=== PATIENT | female | born 1965 | race Caucasian/White ===

== ENCOUNTER 2017-04-02 20:08 | Inpatient (IN) | payer OTHER ==
[~2017-04-02] VITALS: Ht 172.7 cm; Wt 71.7 kg
[2017-04-02 23:48] LABS: *URINE HCG, QUAL NEGATIVE (NEGATIVE)
[2017-04-02 23:50] VITALS: BP 95/69
--- NOTE | 2017-04-02 23:50 | NUR ---
PRE-ADMISSION NOTE: Patient assessed in intake office at 2350 on 04/02/2017. Patient is 51 year old female, ambulatory with steady gait, stable, A&Ox4 speech is clear. Patient states that he is here for Safety Detox from Alcohol. Patient reports that last time she drank Alcohol " Oral Beer 18 packs at 2200 on 04/02/2017". CIWA 11. Patient reports anxiety, sweats, body aches, tremors, and restlessness. VS: T: 98'54 BP: 95/69, HR:79, O2SAT:96%; RR: 18. Patient reports generalized body pain "01/22". Patient reports NKDA, NKFA. Patient instructed on unit protocol of vital signs every four hours, and COWS/CIWA assessments. Patient verbalized understanding and agreement. Will complete admission assessment when patient brought up to unit. Addendum: 04/03/17 at 0007 by MORIAH GALLARDO RN T: 98'5;
[2017-04-03 00:05] LABS: *AMPHETAMINE, URINE NEGATIVE (NEGATIVE); *BARBITURATE, URINE NEGATIVE (NEGATIVE); *CANNABINOID, URINE NEGATIVE (NEGATIVE); *COCCAINE, URINE NEGATIVE (NEGATIVE); *OPIATE, URINE NEGATIVE (NEGATIVE); *PHENCYCLIDINE SCREEN,URINE NEGATIVE (NEGATIVE)
--- NOTE | 2017-04-03 00:05 | NUR ---
ADMISSION NOTE: Patient is a 51 year old female admitted to [facility] on 04/03/2017 at 0005 for Alcohol Dependence. Pre-assessment completed in intake. Patient reports NKA. Patient placed on Full Code, Regular Diet, Fall and Seizures Precautions. Patients denies Hx of Seizures. Urine collected and sent to laboratory for UDS and HCG, Qual test. CIWA 11. The patient presented with anxiety, agitation, nervousness, tremors, body aches, diaphoresis, headache, restlessness, and fatigue. Patient denies SI/HI. VS upon admission: T: 98'4, BP: 95/69, HR:79, O2SAT:96%; RR: 18. Patient reports body aches "01/22". PMH: Anxiety, Depression, Chronic Back Pain, Substance Abuse, Tobacco Dependence. Patient reports that he is recently has "one time detox/treatment at "[place], [place] on 2007 during 2 weeks.". Patient reports the following substances use: 1. Alcohol PO "every day 12-18 bottles of beer since 2007". Last drank "18 bottles on 04/02/17 at 2200". 2. Tobacco smokes " every day 10 cigarettes or 1/2 pack". Last smoked on "04/02/17 at 2350". Patient said that she has "no PCP long time". Patient brought her home medications: 1. Cyclobenzaprine 10 mg PO BID. 2. Paroxetine HCL 40 mg 1 tab PO 1 tab daily AM. 3. Buspirone HCL 10 mg tab TID PO. 4. Clonidine HCL 0.1 mg tab TID PO. 5. Gabapentine 600 mg tab TID PO. 6. Trazodone 100 mg 1 tab HS PO. 7. Hydroxyzine SALVADOR 25 MG cap four times daily PO. 8. Albuterol Nebulizer. 9. QVAR 40 MCG ORAL INHALER TEVA SPECIALTY. 10.HiD @W Tense/EMS Device with Free Pain Living Multi use self -adhesive electrodes: five. Upon initial assessment patient alert and oriented x4. Respirations are even and unlabored. Patient denies chest pain and SOB. Lungs Sounds are clear bilaterally. Bowel Sounds are active in all 4 quadrants. Last Bowel Movement was "04/02/2017 at 2200 ". Skin is intake, warm and dry. Patient oriented to floor and room, explained how to use call light. Patient verbalized understanding. Education provided. All needs met. Safety measures in the place by hospital policy: bed in the lowest position, and locked, padded bed rails up x2. Will continue to monitor closely.
--- NOTE | 2017-04-03 00:05 | NUR ---
ADMISSION NOTE: Patient is a 34 year old male admitted to [facility] at 2245 on 04/01/2017 for Benzodiazepines, Alcohol, and Opioid Dependence. Pre-assessment completed in intake. Patient reports NKA. . Patient placed on Full Code, Regular Diet, Fall and Seizures Precautions. Patients denies Hx of Seizures. Urine collected and sent to laboratory for UDS and HCG, Qual test. CIWA 11. The patient presented with anxiety, agitation, nervousness, tremors, body aches, diaphoresis, headache, restlessness, and fatigue. Patient denies SI/HI. VS upon admission: T: 98'4, BP: 95/69, HR:79, O2SAT:96%; RR: 18. Patient reports body aches "01/22". PMH: Anxiety, Depression, Chronic Back Pain, Substance Abuse, Tobacco Dependence. Patient reports that he is recently has "one time detox/treatment at "[place], [place] on 2007 during 2 weeks." Patient reports the following substances use: 1. Alcohol PO "every day 12-18 bottles of beer since 2007. Last drank 18 bottles on 04/02/17 at 2200". 2. Tobacco smokes " every day 10 cigarettes or 1/2 pack. Last used on 04/02/17 at 2350". Patient has "no PCP long time". Patient brought her home medications: 1. Cyclobenzaprine 10 mg PO BID. 2. Paroxetine HCL 40 mg 1 tab PO 1 tab daily AM. 3. Buspirone HCL 10 mg tab TID PO. 4. Clonidine HCL 0.1 mg tab TID PO. 5. Gabapentin 600 mg tab TID PO. 6. Trazodone 100 mg 1 tab HS PO. 7. Hydroxyzine SALVADOR 25 MG cap four times daily PO. 8. Albuterol Nebulizer. 9. QVAR 40 MCG ORAL INHALER TEVA SPECIALTY. 10.HiD @W Tense/EMS Device with Free Pain Living Multi use self -adhesive electrodes: five. Respirations are even and unlabored. Patient denies chest pain and SOB. Lungs Sounds are clear bilaterally. Bowel Sounds are active in all 4 quadrants. Last Bowel Movement was "04/02/2017 at 2200 ". Skin is intake, warm and dry. Patient oriented to floor and room, explained how to use call light. Patient verbalized understanding. Education provided. All needs met. Safety measures in the place by hospital policy: bed in the lowest position, and locked, padded bed rails up x2. Will continue to monitor closely. Addendum: 04/03/17 at 0445 by MORIAH GALLARDO RN WRONG PT.
[2017-04-03] MEDS ORDERED: LORAZEPAM 1 MG TABLET PO PRN (00:15)
[2017-04-03] MEDS ORDERED: IBUPROFEN 400 MG TABLET PO PRN (00:15)
[2017-04-03] MEDS ORDERED: LORAZEPAM 2 MG/1 ML VIAL IM PRN (00:15)
[2017-04-03] MEDS ORDERED: ONDANSETRON ODT 4 MG TAB.RAPDIS SL PRN (00:15)
[2017-04-03] MEDS ORDERED: THIAMINE HCL 200 MG/2 ML VIAL IM ONE (00:15)
[2017-04-03] MEDS ORDERED: ACETAMINOPHEN 325 MG TABLET PO PRN (00:15)
[2017-04-03] MEDS ORDERED: DICYCLOMINE HCL 20 MG TABLET PO PRN (00:15)
[2017-04-03] MEDS ORDERED: MAG HYDROX/AL HYDROX/SIMETH 30 ML LIQUID UDC PO PRN (00:15)
[2017-04-03] MEDS ORDERED: ONDANSETRON 4 MG/2 ML VIAL IM PRN (00:15)
[2017-04-03] MEDS ORDERED: diphenhydrAMINE 50 MG CAPSULE PO PRN (00:15)
[2017-04-03] MEDS ORDERED: LOPERAMIDE HCL 2 MG CAPSULE PO PRN ×2 (00:15)
[2017-04-03] MEDS ORDERED: MAGNESIUM HYDROXIDE 30 ML LIQUID UDC PO PRN (00:15)
[2017-04-03] MEDS ORDERED: MIRALAX 17 GM POWD.PACK PO PRN (00:15)
[2017-04-03] MEDS ORDERED: CYCL5TAB PO (00:55)
[2017-04-03] MEDS: LORAZEPAM 1 MG TABLET PO PRN ×2 (01:13→09:36)
--- NOTE | 2017-04-03 01:13 | NUR ---
PRN BENADRYL PO 50 MG 1 CAP AND PRN ATIVAN 1MG 1 TAB PO ADMINISTRATION Patient c/o insomnia and increased anxiety. Patient assessed. CIWA 11. VS WNL. PRN Benadryl PO and PRN Ativan PO discussed with patient. Patient's educated for actions, adverse reactions, and side effects of Benadryl and Ativan. Patient returned back knowledge by verbalized understanding PRN Benadryl PO 50 mg 1 cap and PRN Ativan 1 mg 1 tab administrated as ordered with full glass of water. All needs met. Safety measures in the place. Call light within reach, bed in the lowest position, and locked, padded bed rails up x2. Will continue to monitor closely.
[2017-04-03] MEDS ORDERED: LORAZEPAM 1 MG TABLET ONE (01:17)
[2017-04-03] MEDS ORDERED: diphenhydrAMINE 50 MG CAPSULE ONE (01:19)
[2017-04-03] MEDS ORDERED: BUSP5POW MC (01:25)
[2017-04-03] MEDS ORDERED: PARO40TA4 PO (01:25)
[2017-04-03] MEDS ORDERED: CLON0.1T PO (01:34)
[2017-04-03] MEDS ORDERED: GABA600T2 PO (01:34)
[2017-04-03] MEDS ORDERED: ALBU2.5V38 NEB (01:58)
[2017-04-03] MEDS ORDERED: TRAZ-147 PO (01:58)
[2017-04-03] MEDS ORDERED: HYDR-3895 PO (01:58)
--- NOTE | 2017-04-03 02:13 | NUR ---
RE-ASSESSMENT Patient is sleeping. Respirations even and unlabored. RR: 16. PRN Ativan PO and PRN Benadryl PO were effective. All needs met. Safety measures in the place. Call light within reach, bed in the lowest position, and locked, padded bed rails up x2. Will continue to monitor closely.
[2017-04-03 04:00] VITALS: BP 116/80
--- NOTE | 2017-04-03 07:02 | NUR ---
END OF SHIFT NOTE: Patient is a 51 year old female admitted to [facility] on 04/03/2017 at 0005 for Alcohol Dependence. Patient reports NKA. Patient placed on Full Code, Regular Diet, Fall and Seizures Precautions. Patients denies Hx of Seizures. PMH: Anxiety, Depression, Chronic Back Pain, Substance Abuse, Tobacco Dependence. Patient reports "one time detox/treatment at "[facility], [place] on 2007 during 2 weeks." Patient reports the following substances use: 1. Alcohol PO "every day 12-18 bottles of beer since 2007. Last drank 18 bottles on 04/02/17 at 2200". 2. Tobacco smokes " every day 10 cigarettes or 1/2 pack. Last used on 04/02/17 at 2350". Last CIWA at 0400 decreased from 11 to 4. The patient presented with anxiety, agitation, nervousness, tremors, body aches, diaphoresis, headache, restlessness, and fatigue. Patient denies SI/HI. VS at 0400: T: 98'1, BP: 116/80, HR:81, O2SAT:99%; RR: 16, pain "0/10". Respirations are even and unlabored. Patient denies chest pain and SOB. Last Bowel Movement was "04/02/2017 at 2200 ". Skin is intact, warm and dry to touch. PRN Ativan PO and PRN Benadryl PO were effective. Encourage fluids intake as tolerated. Encourage to attend group activities. Patient slept 4 hours, intake 500 ml, voided x1. All needs met. Safety measures in the place by hospital policy: bed in the lowest position, and locked, bed rails up x2.
--- NOTE | 2017-04-03 07:41 | NUR ---
START OF SHIFT NOTE: Received report from warehouse worker 2nd shift nurse. Patient is a 51 year old female admitted 04/03/2017 for Alcohol Dependence. Pt is currently on prn meds only. Pt is alert and oriented X4. Color good, skin warm and dry. Respirations even and unlabored. Resting in bed. Safety precautions observed. Call light within reach. Will continue to monitor.
[2017-04-03 07:53] LABS: BASOPHILS # (AUTO) 0.1 K/uL (0.0-8.0); BASOPHILS % (AUTO) 0.7 % (0.0-2.0); EOSINOPHILS # (AUTO) 0.2 K/uL (0.0-0.7); EOSINOPHILS % (AUTO) 2.2 % (0.0-7.0); HEMATOCRIT 36.3 % (37-47); HEMOGLOBIN 12.5 G/DL (12.0-16.0); LYMPHOCYTES # (AUTO) 2.2 K/UL (0.8-4.8); LYMPHOCYTES % (AUTO) 25.8 % (20.5-51.5); MEAN CORPUSCULAR HGB CONC 34 g/dL (32.0-37.0); MEAN CORPUSCULAR VOLUME 90.3 FL (81.0-99.0); MONOCYTES # (AUTO) 0.8 K/UL (0.1-1.30); MONOCYTES % (AUTO) 8.7 % (0.0-11.0); NEUTROPHILS # (AUTO) 5.3 K/UL (1.8-8.9); NEUTROPHILS % (AUTO) 62.6 % (38.5-71.5); PLATELET COUNT (AUTO) 229 K/UL (150-450); RED BLOOD CELL COUNT(AUTO) 4.03 MIL/UL (4.2-5.4); WHITE BLOOD COUNT (AUTO) 8.6 K/UL (4.0-11.2)
[2017-04-03 08:00] VITALS: BP 129/84
[2017-04-03 08:32] LABS: ETHANOL < 3 MG/DL (0-0)
[2017-04-03] MEDS ORDERED: TUBERCULIN,PURIF.PROT.DERIV. 5 TU/0.1 ML TEST ID ONE (09:00)
--- NOTE | 2017-04-03 09:00 | NUR ---
VSS CIWA 10 Ativan 1mg po prn given. Pt c/o anxiety, sweating and slight tremors
[2017-04-03 09:01] LABS: ALANINE AMINOTRANSFERASE 42 U/L (14-59); ALKALINE PHOSPHATASE 90 U/L (50-136); AMYLASE 49 U/L (25-115); BILIRUBIN,TOTAL 0.4 mg/dL (0.2-1.0); CARBON DIOXIDE 25 mmol/L (21-32); CHLORIDE 104 mmol/L (98-107); CREATININE 0.9 mg/dL (0.6-1.3); GLUCOSE 98 mg/dL (74-106); MAGNESIUM 1.8 mg/dL (1.8-2.4); POTASSIUM 4.3 mmol/L (3.5-5.1); TOTAL PROTEIN, SERUM 7.1 g/dL (6.4-8.2); UREA NITROGEN, BLOOD 16 mg/dL (7-18)
--- NOTE | 2017-04-03 09:10 | NUR ---
TB test administered LFA
[2017-04-03 09:19] LABS: ASPARTATE AMINOTRANSFERASE 46 U/L (15-37); LIPASE 115 U/L (73-393)
[2017-04-03] MEDS: FOLIC ACID 1 MG TABLET PO SCH (09:36)
[2017-04-03] MEDS: THIAMINE HCL 100 MG TABLET PO SCH (09:36)
[2017-04-03] MEDS: MULTIVITAMINS,THERAPEUTIC TABLET PO SCH (09:37)
--- NOTE | 2017-04-03 10:00 | NUR ---
Pt states feels less anxious after Ativan prn
--- NOTE | 2017-04-03 11:21 | NUR ---
Medication Reconciliation Pt states that she really wants her psychiatric medications. Dr Aguayo notified, gave ok to continue her home medications: Paxil 40mg PO daily, Buspar 10mg PO TID and trazadone 100mg PO Q HS PRN insomnia. Orders entered, unable to enter orders.
[2017-04-03] MEDS ORDERED: PAROXETINE HCL 20 MG TABLET PO SCH (11:30)
[2017-04-03] MEDS: busPIRone 10 MG TABLET PO SCH ×2 (12:21→18:00)
[2017-04-03] MEDS ORDERED: ALBUTEROL SULFATE 2.5 MG/3 ML NEBU NEB PRN (13:00)
[2017-04-03 13:34] VITALS: BP 130/82
[2017-04-03] MEDS: GABAPENTIN 300 MG CAPSULE PO SCH ×2 (13:45→20:52)
[2017-04-03] MEDS: LORAZEPAM 1 MG TABLET PO SCH ×3 (13:45→20:53)
--- NOTE | 2017-04-03 14:07 | NUR ---
VSS CIWA 8 c/o anxiety and chills. Pt started on a 5 day Ativan taper. Pt given Immodium 4mg po prn for cramping and diarrhea.
--- NOTE | 2017-04-03 15:00 | NUR ---
Pt states cramping and diarrhea ceased after Immodium prn.
[2017-04-03] MEDS ORDERED: TRAZODONE 100 MG TABLET PO PRN (16:15)
[2017-04-03] MEDS ORDERED: busPIRone 5 MG TABLET PO SCH (17:00)
[2017-04-03 17:50] VITALS: BP 132/88
--- NOTE | 2017-04-03 18:38 | NUR ---
END OF SHIFT REPORT: Report given to shift boss nurse . Patient is a 51 year old female admitted 04/03/2017 for Alcohol Dependence. Pt placed on a 5 day Ativan taper. Tolerating well. . Pt is alert and oriented X4. Color good, skin warm and dry. Respirations even and unlabored. Vital signs remained stable throughout shift . Last CIWA 5 @ 1700. Pt received Immodium 4mg po prn @ 1400. Also received Ativan 1mg po prn @ 0900 before taper started. Resting in bed. Safety precautions observed. Call light within reach.
--- NOTE | 2017-04-03 19:45 | NUR ---
START OF SHIFT NOTE: Patient endorsed by day shift nurse. Report received. Patient is a 51 year old female admitted to [facility] on 04/03/2017 for Alcohol Dependence, placed on 5 Day Ativan Taper, tolerating well. Patient remains compliant with therapeutic plan, medications, and diet regime. NKA. Full Code, Regular Diet, Fall and Seizures Precautions. PMH: Anxiety, Depression, Chronic Back Pain, Substance Abuse, Tobacco Dependence. The patient denies a history of withdrawal-induced seizures. Upon endorsement, patient is in the room alert and oriented x4, speech is soft. Last CIWA 5 at 1945. Patient presented with anxiety, agitation, nervousness, body aches, barely sweating, restlessness, and fatigue. Respirations are even and unlabored. Patient denies chest pain and SOB. Lungs Sounds are clear bilaterally. Bowel Sounds are active in all 4 quadrants. Last Bowel Movement was "04/03/2017 at 1500 ". Skin is intake, warm and dry to touch Patient denies SI/HI at this time. VS WNL. Encouraged group activities attending. All needs met. Safety measures in the place by hospital policy: bed in the lowest position, and locked, padded bed rails up x2. Will continue to monitor closely.
[2017-04-03 20:00] VITALS: BP 124/84
[2017-04-03] MEDS ORDERED: TRAZODONE 100 MG TABLET PO SCH (21:00)
[2017-04-04] VITALS: BP 124/79
[2017-04-04 04:00] VITALS: BP 128/79
--- NOTE | 2017-04-04 07:07 | NUR ---
END OF SHIFT NOTE: Patient endorsed to day shift nurse in stable condition. Patient is a 51 year old female admitted to [facility] on 04/03/2017 at 0005 for Alcohol Dependence. Patient reports NKA. . Patient placed on Full Code, Regular Diet, Fall and Seizures Precautions. Patients denies Hx of Seizures. PMH: Anxiety, Depression, Chronic Back Pain, Substance Abuse, Tobacco Dependence. Patient reports that he is recently has "one time detox/treatment at "[place], [place] on 2007 during 2 weeks". Last CIWA 6 at 0400. The patient presented with anxiety, agitation, nervousness, tremors, body aches, diaphoresis, very mild headache, restlessness, and fatigue. Patient denies SI/HI. VS at 0400: T: 98'3, BP: 128/79, HR:99, RA O2SAT: 98%; RR: 16, pain "7/10". Respirations are even and unlabored. Patient denies chest pain and SOB. Skin is intact, warm and dry to touch. Encourage fluids intake as tolerated. Encourage to attend group activities. Patient slept 3 hours 30 minutes, intake 1,700 ml, voided x3. All needs met. Safety measures in the place by hospital policy: bed in the lowest position, and locked, bed rails up x2.
[2017-04-04 08:00] VITALS: BP 140/94
[2017-04-04 08:08] LABS: HEPATITIS B SURFACE AG Negative (Negative)
[2017-04-04] MEDS ORDERED: PAROXETINE HCL 20 MG TABLET PO SCH (09:00)
[2017-04-04] MEDS: LORAZEPAM 1 MG TABLET PO SCH ×3 (09:32→21:22)
[2017-04-04] MEDS: MULTIVITAMINS,THERAPEUTIC TABLET PO SCH (09:32)
[2017-04-04] MEDS: busPIRone 10 MG TABLET PO SCH ×3 (09:32→17:13)
[2017-04-04] MEDS: GABAPENTIN 300 MG CAPSULE PO SCH ×3 (09:32→21:22)
[2017-04-04] MEDS: FOLIC ACID 1 MG TABLET PO SCH (09:32)
[2017-04-04] MEDS: THIAMINE HCL 100 MG TABLET PO SCH (09:32)
--- NOTE | 2017-04-04 10:02 | NUR ---
START OF SHIFT Received report from awake overnight counselor nurse. Patient is 51 year old female admitted for medically supervised withdrawal from alcohol. Patient is full code with NKA. On assessment this AM: CIWA: 7. Denies SOB, chest pain. vitals signs WNL. Reports moderate anxiety, mild agitation, mild tremors, and neck pain 8/10 (declined prn ibuprofen and tylenol). Med compliant with AM meds. Patient was encouraged to attend group meetings today. Will continue to monitor patient. will follow up with MD regarding patient's neck pain.
[2017-04-04 12:00] VITALS: BP 145/90
[2017-04-04] MEDS: HYDROXYZINE PAMOATE 25 MG CAPSULE PO PRN (12:47)
[2017-04-04] MEDS: CLONIDINE HCL 0.1 MG TABLET PO PRN (12:48)
--- NOTE | 2017-04-04 12:48 | NUR ---
PRN CLONIDINE AND VISTARIL Patient complained of increasing anxiety. PRN clonidiene (BP 145/90)and vistaril given. Will monitor effectiveness of medications.
--- NOTE | 2017-04-04 13:48 | NUR ---
REASSESSMENT (PRN CLONIDINE AND VISTARIL) Patient reports meds were effective and reports decreased anxiety. Patient appears calmer and comfortable.
[2017-04-04 16:00] VITALS: BP 133/85
[2017-04-04] MEDS ORDERED: IBUPROFEN 600 MG TABLET PO PRN (18:00)
--- NOTE | 2017-04-04 19:00 | NUR ---
END OF SHIFT Patient is 51 year old female admitted for medically supervised withdrawal from alcohol. Patient is full code with NKA. Most recent CIWA: 5. Patient reports prn vistaril and clonidine help with the anxiety. Med compliant with routine meds during this shift. Patient tolerating meals without n/v. apiariste commerce merchandising coordinator will continue to monitor patient. apiariste commerce merchandising coordinator will continue to monitor patient.
[2017-04-04 20:00] VITALS: BP 129/91
--- NOTE | 2017-04-04 20:00 | NUR ---
Start of Shift Note: Report received from day shift nurse. Pt is a 49 yo female admitted on 04/02/2017 for medically-supervised withdrawal from ETOH. Pt reports drinking 12-18 beers daily for four years. Pt is on a 5-day Ativan taper. Pt received with last CIWA=5, and PRN's Vistaril and clonidine were given during day shift. Pt is a full code, reports NKDA/NKFA, and is on a regular diet. PMHx: anxiety, depression, and chronic back pain. Pt received in room and reports anxiety, agitation, and diaphoresis. Bed is in low position and locked, side rails up x2, call light within reach. Will continue to monitor.
[2017-04-04] MEDS: TRAZODONE 100 MG TABLET PO PRN (21:22)
[2017-04-04] MEDS: KETOROLAC TROMETHAMINE 30 MG INJ IM PRN (21:23)
--- NOTE | 2017-04-04 21:23 | NUR ---
PRN Toradol and PRN Trazodone: Patient complains of severe neck pain, rates pain 10/10. Administered PRN Toradol IM as ordered. Patient complains of inability to sleep. Administered PRN Trazodone as ordered. Will continue to monitor.
[2017-04-05] VITALS: BP 119/78
--- NOTE | 2017-04-05 | NUR ---
CIWA Deferred: CIWA deferred for sleep. V/S stable. All safety precautions are in place. Will continue to monitor. Addendum: 04/05/17 at 0023 by MARIS GALEANO RN Amended: Links added.
[2017-04-05] MEDS ORDERED: IBUPROFEN 400 MG TABLET PO PRN (00:15)
[2017-04-05 04:00] VITALS: BP 125/84
[2017-04-05] MEDS: PANTOPRAZOLE SODIUM 40 MG TABLET.DR PO SCH (06:08)
--- NOTE | 2017-04-05 07:12 | NUR ---
End of Shift Note: Pt is a 49 yo female admitted to [facility] on 04/02/2017 for medically-supervised withdrawal from ETOH. Pt reports PMHx of anxiety, depression, and chronic back pain. Pt is a full code. Pt reports NKDA/NKFA. Pt is on a regular diet. Pt reports drinking 12-18 beers daily for four years. Pt is on a 5-day Ativan taper. Scheduled medication regime effectively managed s/s of withdrawal this shift. Last CIWA=6 at 04:00. PRN Toradol was given for neck pain, which was effective. V/S stable throughout shift with tachycardia. Total fluid intake this shift: 855 ml; output: urine x 1 and BM x 1. PRN Trazodone was given for inability to sleep, which was effective and pt slept 5 hours this shift. Pt is currently in bed, all needs have been attended and met. Pt endorsed to day shift nurse.
[2017-04-05 08:00] VITALS: BP 132/87
--- NOTE | 2017-04-05 08:00 | NUR ---
START OF SHIFT Pt 51 y/o female admitted for etoh dependence. Pt received in room awake watching television. Pt alert and oriented to name, place, and time. Perrla. Skin warm and dry to touch. Respirations even and unlabored. Bilateral hand tremors noted slightly. Pt appears slightly anxious with pressured speech noted. It was reported that pt slept for 5 hours last night. Bed on lowest position with side rails x2 up for safety. Call ligth within reach. No distress noted at this time.
[2017-04-05] MEDS: MULTIVITAMINS,THERAPEUTIC TABLET PO SCH (08:50)
[2017-04-05] MEDS: GABAPENTIN 300 MG CAPSULE PO SCH ×3 (08:50→20:45)
[2017-04-05] MEDS: LORAZEPAM 1 MG TABLET PO SCH ×4 (08:50→20:45)
[2017-04-05] MEDS: busPIRone 10 MG TABLET PO SCH ×3 (08:50→16:59)
[2017-04-05] MEDS: FOLIC ACID 1 MG TABLET PO SCH (08:50)
[2017-04-05] MEDS: THIAMINE HCL 100 MG TABLET PO SCH (08:50)
[2017-04-05 12:00] VITALS: BP 110/71
[2017-04-05] MEDS: CLONIDINE HCL 0.1 MG TABLET PO PRN ×2 (14:13→20:45)
--- NOTE | 2017-04-05 14:13 | NUR ---
PRN Pt states feels anxious. Catapres po prn per MD order given and tolerated well.
--- NOTE | 2017-04-05 15:13 | NUR ---
CLINTON MILLER Pt observed in room on bed laying down watching television.
[2017-04-05 16:00] VITALS: BP 142/86
--- NOTE | 2017-04-05 18:28 | NUR ---
END OF SHIFT Pt 51 y/o female admitted for etoh dependence. Pt alert and oriented to name, place, and time. Perrla. Skin warm and dry to touch. Respirations even and unlabored. Bilateral hand tremors noted slightly. Pt appears slightly anxious with pressured speech noted. Pt observed mostly isolative to room with minimal peer interaction, but did attend group activity. Pt was seen by Dr. Acosta. Pt medication compliant and tolerated well. No ASE noted. Bed on lowest position with side rails x2 up for safety. Call ligth within reach. No distress noted at this time.
[2017-04-05 20:00] VITALS: BP 128/79
--- NOTE | 2017-04-05 20:00 | NUR ---
Start of Shift Note: Report received from day shift nurse. 49F admitted for medically-supervised withdrawal from ETOH; pt continues on a 5-day Ativan taper. Endorsed from day shift that pt continues with mild tachycardia. Last day shift CIWA was 2 and PRN clonidine was administered. Received pt in room, and reports anxiety and agitation. All safety precautions are in place. Will continue to monitor.
[2017-04-05] MEDS: TRAZODONE 100 MG TABLET PO PRN (20:45)
--- NOTE | 2017-04-05 20:45 | NUR ---
PRN Clonidine and PRN Trazodone: Patient complains of increased anxiety. Administered PRN Clonidine as ordered. Patient complains of inability to sleep. Administered PRN Trazodone as ordered. Will continue to monitor.
--- NOTE | 2017-04-05 21:45 | NUR ---
PRN Reassessment: Patient is in bed with eyes closed. Respirations are even and unlabored. No s/s of acute distress noted. PRN Clonidine and PRN Trazodone effective AEB patient's ability to rest. Will continue to monitor.
--- NOTE | 2017-04-06 | NUR ---
Vitals Refused, CIWA Deferred: Patient refuses V/S assessment at this time. Patient educated on risks and benefits but still refused. CIWA deferred for sleep. All safety precautions in place. Will continue to monitor. Addendum: 04/06/17 at 0244 by MARIS GALEANO RN Amended: Links added.
[2017-04-06 04:00] VITALS: BP 122/78
--- NOTE | 2017-04-06 04:00 | NUR ---
CIWA Deferred: CIWA assessment is deferred for sleep. V/S stable. All safety precautions are in place. Will continue to monitor. Addendum: 04/06/17 at 0624 by MARIS GALEANO RN Amended: Links added.
[2017-04-06] MEDS: PANTOPRAZOLE SODIUM 40 MG TABLET.DR PO SCH (07:03)
--- NOTE | 2017-04-06 07:29 | NUR ---
End of Shift Note: Patient is a 49 y/o female admitted to [facility] for medically-supervised withdrawal from ETOH. Patient reported drinking 12-18 beers daily for four years. Patient continues on a 5-day Ativan taper. Scheduled medication regime effectively managed s/s of withdrawal this shift, in addition to PRN clonidine for anxiety. Last CIWA=2 at 20:00. V/S stable throughout shift with tachycardia. Patient requested continuation of home med, Paxil and new order obained from Dr Aguayo. Patient also requesting to take Clonidine on scheduled basis, not PRN. Total fluid intake this shift: 1100 ml; output: urine x 2 and BM x 0. PRN Trazodone was given for inability to sleep, which was effective as patient slept 9 hours this shift. Pt is currently in bed, all needs have been attended and met. Pt endorsed to day shift nurse.
[2017-04-06 08:00] VITALS: BP 123/77
--- NOTE | 2017-04-06 08:00 | NUR ---
START OF SHIFT Pt 51 y/o female admitted for etoh dependence. Pt received in room on bed awake watching television. Pt alert and oriented to name, place, and time. Perrla. Skin warm and dry to touch. Respirations even and unlabored. Bilateral hand tremors noted slightly. It was reported that pt slept for 9 hours last night. Bed on lowest position with side rails x2 up for safety. Call light within reach. No distress noted at this time.
[2017-04-06] MEDS: GABAPENTIN 300 MG CAPSULE PO SCH ×3 (08:35→20:26)
[2017-04-06] MEDS: LORAZEPAM 1 MG TABLET PO SCH ×3 (08:35→20:25)
[2017-04-06] MEDS: THIAMINE HCL 100 MG TABLET PO SCH (08:35)
[2017-04-06] MEDS: FOLIC ACID 1 MG TABLET PO SCH (08:35)
[2017-04-06] MEDS: MULTIVITAMINS,THERAPEUTIC TABLET PO SCH (08:35)
[2017-04-06] MEDS: busPIRone 10 MG TABLET PO SCH ×3 (08:35→16:31)
[2017-04-06] MEDS: PAROXETINE HCL 20 MG TABLET PO SCH (08:35)
[2017-04-06] MEDS: HYDROXYZINE PAMOATE 25 MG CAPSULE PO PRN (08:48)
--- NOTE | 2017-04-06 08:48 | NUR ---
PRN Pt states feels anxious. Vistaril po prn per MD order given and tolerated well.
--- NOTE | 2017-04-06 09:48 | NUR ---
PRN ANGELA Pt observed on bed in room watching television. No distress noted at this time.
[2017-04-06] MEDS: CLONIDINE HCL 0.1 MG TABLET PO PRN ×2 (12:13→20:25)
[2017-04-06 12:54] VITALS: BP 144/86
[2017-04-06 16:00] VITALS: BP 134/79
[2017-04-06] MEDS ORDERED: hydrALAZINE HCL 25 MG TABLET PO PRN (17:30)
--- NOTE | 2017-04-06 19:45 | NUR ---
Start of Shift Note: Report received from day shift nurse. Patient is a 51 y/o female admitted on 04/02/17 for medically-supervised withdrawal from ETOH. Patient reported drinking 12-18 bottles of beer daily for four years. Patient continues on a 5-day Ativan taper. Patient received with last day shift CIWA=2; PRN Catapres and PRN Vistaril were given during day shift for anxiety. Patient received in room, and reports anxiety, restlessness, insomnia, and neck pain. All safety precautions are in place. Will continue to monitor.
[2017-04-06 20:00] VITALS: BP 125/82
--- NOTE | 2017-04-06 20:25 | NUR ---
PRN's Clonidine, Toradol, and Trazodone: Patient complains of increased anxiety. Administered PRN Clonidine as ordered. Patient reports 10/10 neck pain. Administered PRN Toradol IM as ordered. Patient complains of inability to sleep. Administered PRN Trazodone as ordered. Will continue to monitor.
[2017-04-06] MEDS: TRAZODONE 100 MG TABLET PO PRN (20:26)
[2017-04-06] MEDS: KETOROLAC TROMETHAMINE 30 MG INJ IM PRN (20:26)
--- NOTE | 2017-04-06 21:25 | NUR ---
PRN Reassessment: Patient states that PRN Toradol was effective. Patient denies pain at this time. Patient reports a decrease in anxiety. PRN Clonidine effective. Will reassess PRN Trazodone at end of shift.
[2017-04-07] VITALS: BP 116/81
--- NOTE | 2017-04-07 | NUR ---
CIWA Deferred: CIWA deferred for sleep. V/S stable. All safety precautions are in place. Will continue to monitor. Addendum: 04/07/17 at 0218 by MARIS GALEANO RN Amended: Links added.
[2017-04-07 04:00] VITALS: BP 102/65
--- NOTE | 2017-04-07 04:00 | NUR ---
CIWA Deferred: CIWA deferred for sleep. V/S stable. All safety precautions are in place. Will continue to monitor. Addendum: 04/07/17 at 0650 by MARIS GALEANO RN Amended: Links added.
[2017-04-07] MEDS: PANTOPRAZOLE SODIUM 40 MG TABLET.DR PO SCH (06:36)
--- NOTE | 2017-04-07 07:51 | NUR ---
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 Patient is on 1:1 for safety. Patient had two behavioral incidents throughout the night, and Crisis Team was called for both incidents. Ativan 2mg IM and Zyprexa 10mg IM was given at start of shift for psychosis; Ativan 2mg PO and Zyprexa 10mg IM was given again in the morning for psychosis. V/S stable throughout shift. Total fluid intake this shift: 878 ml; output: urine x 3 and BM x 2. Pt is currently in bed and slept 5 hours this shift. All needs have been attended and met. Pt endorsed to day shift nurse. Addendum: 04/07/17 at 0755 by MARIS GALEANO RN Error, wrong patient. Disregard note.
--- NOTE | 2017-04-07 07:54 | NUR ---
End of Shift Note: Patient is a 51YO female admitted to [facility] on 04/02/17 for medically-supervised withdrawal from ETOH. Patient reports drinking 12-18 beers/day for four years. Patient is on a 5-day Ativan taper. Scheduled medication regime effectively managed s/s of withdrawal this shift, in addition to PRN Catapres for anxiety. Last CIWA=2 at 20:00. V/S stable throughout shift with tachycardia. PRN Toradol was given for severe neck pain. Total fluid intake this shift: 1210 ml; output: urine x 3 and BM x 0. PRN Trazodone was given for inability to sleep, which was effective as patient slept 8 hours this shift. Pt is currently in bed, all needs have been attended and met. Pt endorsed to day shift nurse.
[2017-04-07 08:00] VITALS: BP 121/71
--- NOTE | 2017-04-07 08:00 | NUR ---
START OF SHIFT Pt 51 y/o female admitted for etoh dependence. Pt received in room on bed with eyes closed resting, but easily arousable to name. Pt alert and oriented to name, place, and time. Perrla. Skin warm and dry to touch. Respirations even and unlabored. Bilateral hand tremors noted slightly. Pt appeared agitated this morning. It was reported that pt slept for 8 hours last night. Bed on lowest position with side rails x2 up for safety. Call light within reach. No distress noted at this time.
[2017-04-07] MEDS: busPIRone 10 MG TABLET PO SCH ×3 (08:10→17:15)
[2017-04-07] MEDS: LORAZEPAM 1 MG TABLET PO SCH ×2 (08:10→20:24)
[2017-04-07] MEDS: PAROXETINE HCL 20 MG TABLET PO SCH (08:10)
[2017-04-07] MEDS: THIAMINE HCL 100 MG TABLET PO SCH (08:11)
[2017-04-07] MEDS: GABAPENTIN 300 MG CAPSULE PO SCH ×3 (08:11→20:24)
[2017-04-07] MEDS: FOLIC ACID 1 MG TABLET PO SCH (08:11)
[2017-04-07] MEDS: MULTIVITAMINS,THERAPEUTIC TABLET PO SCH (08:11)
[2017-04-07] MEDS: CLONIDINE HCL 0.1 MG TABLET PO PRN ×2 (08:13→14:55)
--- NOTE | 2017-04-07 08:13 | NUR ---
PRN Pt states feels anxious. Pt appears slightly agitated. Catapres po prn per MD order given and tolerated well.
--- NOTE | 2017-04-07 09:13 | NUR ---
CLINTON MILLER Pt observed in room on bed watching television.
[2017-04-07 12:53] VITALS: BP 112/71
[2017-04-07 16:00] VITALS: BP 121/84
[2017-04-07] MEDS: HYDROXYZINE PAMOATE 25 MG CAPSULE PO PRN (17:13)
[2017-04-07 20:00] VITALS: BP 126/81
--- NOTE | 2017-04-07 20:05 | NUR ---
START OF SHIFT Received report from day shift nurse. Pt attended a group meeting and returned to her room after. She is a 51 yo female admitted to [facility] on 04/03 for ETOH dependence. She is A&Ox4 and ambulatory. NKA, full code status, and on a regular diet. She has a PMH of asthma, chronic back pain, right side neuropathic pain, anxiety, and depression. On admission she admitted to using beer 12-18 bottles per day. She started a 5 day Ativan taper on 04/03. No wheezing or SOB noted. Pt reports mild anxiety. Ativan taper is working well to manage withdrawal symptoms. Last dose is scheduled for tonight. Fall and seizure precautions in place. Bed is down with call light in reach.
[2017-04-07] MEDS: TRAZODONE 100 MG TABLET PO PRN (21:06)
--- NOTE | 2017-04-07 21:07 | NUR ---
PRN Trazodone Pt reports inability to sleep. PRN Trazodone administered.
--- NOTE | 2017-04-07 22:07 | NUR ---
PRN Trazodone reassessment PRN Trazodone effective. Pt is lying in bed resting with eyes closed. Respirations even and unlabored. Safety measures in place.
[2017-04-08] VITALS: BP 105/64
--- NOTE | 2017-04-08 04:00 | NUR ---
0400 Vitals signs refused/CIWA deferred Pt refused to be woken for 0400 vitals signs. Respirations even and unlabored. CIWA ordered Q4HWA. Safety measures in place.
[2017-04-08] MEDS: PANTOPRAZOLE SODIUM 40 MG TABLET.DR PO SCH (06:47)
--- NOTE | 2017-04-08 07:25 | NUR ---
END OF SHIFT Report provided to day shift nurse. Pt is lying in bed resting. She is a 51 yo female admitted to [facility] on 04/03 for ETOH dependence. She is A&Ox4 and ambulatory. NKA, full code status, and on a regular diet. She has a PMH of asthma, chronic back pain, right side neuropathic pain, anxiety, and depression. On admission she admitted to using beer 12-18 bottles per day. She completed a 5 day Ativan taper last night. PRN Trazodone administered. Last CIWA was 2. She drank 1205 and slept 8 hours. Fall and seizure precautions in place. Bed is down with call light in reach.
--- NOTE | 2017-04-08 07:29 | NUR ---
BEGINNING OF SHIFT Patient endorsement report received from film processing shift supervisor, all pertinent information discussed. Patient admitted on 04/02/2017 with admitting Dx: etoh dependence. Patient with ongoing 5 day Ativan taper as ordered, and is scheduled to begin day 2 of taper. Per film processing shift supervisor patient received: Trazodone as ordered, medications was effective. Patient slept for 8 hours. Patient received awake, alert and oriented x4. Educated pateitn regarding plan of care for the day and medication regimen with good verbal understanding. Safety measures in place. all needs met and rendered, will continue to monitor.
[2017-04-08] MEDS: THIAMINE HCL 100 MG TABLET PO SCH (08:32)
[2017-04-08] MEDS: MULTIVITAMINS,THERAPEUTIC TABLET PO SCH (08:32)
[2017-04-08] MEDS: busPIRone 10 MG TABLET PO SCH ×3 (08:32→16:24)
[2017-04-08] MEDS: FOLIC ACID 1 MG TABLET PO SCH (08:32)
[2017-04-08] MEDS: GABAPENTIN 300 MG CAPSULE PO SCH ×3 (08:32→21:10)
[2017-04-08] MEDS: PAROXETINE HCL 20 MG TABLET PO SCH (08:32)
[2017-04-08] MEDS: HYDROXYZINE PAMOATE 25 MG CAPSULE PO PRN ×2 (08:34→21:10)
--- NOTE | 2017-04-08 08:35 | NUR ---
PRN VISTARIL Patient reports increase in anxiety, provided with non pharmacological interventions with no relief, Administered PRN Vistaril as ordered, will monitor effectiveness of medication.
[2017-04-08 08:36] VITALS: BP 128/79
--- NOTE | 2017-04-08 09:35 | NUR ---
VISTARIL REASSESSMENT patient reports medication effective, feels less anxious, will continue to monitor.
[2017-04-08] MEDS: CLONIDINE HCL 0.1 MG TABLET PO PRN ×2 (12:47→21:52)
--- NOTE | 2017-04-08 12:47 | NUR ---
PRN CLONIDINE Patient reported feeling increase in anxiety and restlessness, bp: 138/78 heart rate: 109, provided with non pharmacological interventions with no relief, Administered clonidine as ordered, will monitor effectiveness.
[2017-04-08 12:59] VITALS: BP 138/78
--- NOTE | 2017-04-08 13:47 | NUR ---
CLONIDINE REASSESSMENT Patient reports feeling less anxious. medication effective, will continue to monitor. bp: 130/77 heart rate: 92.
[2017-04-08 13:59] LABS: *AMPHETAMINE, URINE NEGATIVE (NEGATIVE); *BARBITURATE, URINE NEGATIVE (NEGATIVE); *CANNABINOID, URINE NEGATIVE (NEGATIVE); *COCCAINE, URINE NEGATIVE (NEGATIVE); *OPIATE, URINE NEGATIVE (NEGATIVE); *PHENCYCLIDINE SCREEN,URINE NEGATIVE (NEGATIVE)
[2017-04-08] MEDS: KETOROLAC TROMETHAMINE 30 MG INJ IM PRN (16:25)
--- NOTE | 2017-04-08 16:25 | NUR ---
PRN TORADOL Patient c/o neck and back pain 05/24, provided with non pharmacological interventions with no relief, administered Toradol injection as ordered, well tolerated, will monitor effectiveness of medication.
[2017-04-08] MEDS ORDERED: TRAZ-147 PO (16:27)
[2017-04-08] MEDS ORDERED: PANT40TA2 PO (16:27)
[2017-04-08 17:00] VITALS: BP 130/77
--- NOTE | 2017-04-08 17:25 | NUR ---
TORADOL REASSESSMENT Patient reports medication effective one hour post adminstration, current pain level 0/10, will continue to monitor closely.
--- NOTE | 2017-04-08 19:03 | NUR ---
END OF SHIFT Patient alert and oriented x4, vital signs were stable during shift. Patient is compliant with therapeutic plan of care. Patient continues under close observation. Patient completed 5 day Ativan taper, well tolerated. no ASE noted. 0900 assessment patient presented with: tremors that can be felt but not seen, and anxiety with ciwa score of: 3; 1300 assessment patient presented with: tremors that can be felt and mild anxiety; 1700 assessment patient presented with: tremors taht can be felt but not seen, and mild anxiety with ciwa score of: 2. Patient encouraged adequate PO fluid intake as tolerated. Patient encouraged to attend group therapies/sessions to learn new coping skills to prevent relapse, noted attending and participating, denies SI/HI. During shift patient Received PRN: Vistaril, Clonidine and Toradol injection well tolerated, no ASE noted, medications were effective. Safety measures in place. call light kept with in reach, will continue to monitor closely. safety measures in place. will continue to monitor. Patient endorsed to shift supervisor rn nurse, all pertinent information discussed.
[2017-04-08 20:00] VITALS: BP 129/75
--- NOTE | 2017-04-08 20:00 | NUR ---
Start of Shift Patient is a 51-year old, female, admitted for ETOH dependence. With hx of Anxiety, Depression, Asthma and Chronic Back Pain due to Cervical and Lumbar Spinal Disease with Radiculopathy. Pt was placed on a 5-day Ativan taper and completed. No adverse reactions. For discharge to [facility] tomorrow. Pt is AAOx4 and with mild anxiety noted at this time. Pt is ambulatory with steady gait and with intact skin. Fall, universal and safety prec in place. Call light within reach. Latest CIWA=2. Will continue to monitor pt.
[2017-04-08] MEDS: TRAZODONE 100 MG TABLET PO PRN (21:11)
--- NOTE | 2017-04-08 21:11 | NUR ---
RN note PRN Vistaril and Trazodone Pt c/o feeling anxious and unable to sleep. Administered Vistaril 50 mg PO and Trazodone 100 mg PO as ordered. Will reassess.
--- NOTE | 2017-04-08 21:52 | NUR ---
RN note PRN Clonidine Pt c/o feeling anxious and noted to be restless. Administered Clonidine 0.1 mg PO as ordered. Will reassess.
--- NOTE | 2017-04-08 22:15 | NUR ---
RN note reassess Pt asleep on bed, no SOB nor facial grimacing noted.
--- NOTE | 2017-04-09 00:10 | NUR ---
RN note Pt refused vital signs and CIWA assessment for 0000 despite explanation of risks and benefits. No SOB nor facial grimacing noted. RR=16.
--- NOTE | 2017-04-09 04:05 | NUR ---
RN note Pt refused vital signs assessment for 0400 despite explanation of risks and benefits. RR=16. No SOB nor facial grimacing noted.
--- NOTE | 2017-04-09 04:22 | NUR ---
Endorsement Pt asleep on bed, with no SOB nor facial grimacing noted. Endorsed for continuity of care.
--- NOTE | 2017-04-09 07:23 | NUR ---
BEGINNING OF SHIFT Patient endorsement report received from police shift commander, all pertinent information discussed. Patient admitted on 04/02/2017 with admitting Dx: etoh dependence. Patient comleted 5 day ativan taper as ordered, and is scheduled for discharge this morning, patient noted self motivated towards sobriety. Per police shift commander patient received: Trazodone and clonidine as ordered, medications was effective. Patient slept for 6 hours. Patient received awake, alert and oriented x4. Educated pateitn regarding plan of care for the day, medication regimen, will provide patient with all discharge instructions today. Safety measures in place. all needs met and rendered, will continue to monitor.
[2017-04-09] MEDS: PANTOPRAZOLE SODIUM 40 MG TABLET.DR PO SCH (07:57)
[2017-04-09] MEDS: CLONIDINE HCL 0.1 MG TABLET PO PRN (08:00)
[2017-04-09] MEDS: GABAPENTIN 300 MG CAPSULE PO SCH (08:00)
[2017-04-09] MEDS: PAROXETINE HCL 20 MG TABLET PO SCH (08:00)
[2017-04-09] MEDS: FOLIC ACID 1 MG TABLET PO SCH (08:00)
[2017-04-09] MEDS: MULTIVITAMINS,THERAPEUTIC TABLET PO SCH (08:00)
[2017-04-09] MEDS: THIAMINE HCL 100 MG TABLET PO SCH (08:00)
--- NOTE | 2017-04-09 08:01 | NUR ---
PRN CLONIDINE Patient reports increase in anxiety and restlessness, provided with non pharmacological interventions with no relief, administered clonidine as ordered, will monitor effectiveness of medication. safety measures in place.
[2017-04-09 08:02] VITALS: BP 134/85
[2017-04-09] MEDS: HYDROXYZINE PAMOATE 25 MG CAPSULE PO PRN (08:53)
--- NOTE | 2017-04-09 08:53 | NUR ---
PRN VISTARIL Patient reports clonidine ineffective at this time with increase in anxiety, patient provided with non pharmacological interventions with no relief, administered PRN Vistaril. VS WNL. Patient reports feeling anxious d/t discharge today, provided with calming reassurance and encouraged to express feelings.
--- NOTE | 2017-04-09 09:01 | NUR ---
CLONIDINE REASSESSMENT Patient reports medication somewhat effective, reports feeling less anxious, will continue to monitor.
[2017-04-09] MEDS: busPIRone 10 MG TABLET PO SCH (09:02)
--- NOTE | 2017-04-09 09:35 | NUR ---
DISCHARGE Patient off the unit at 0935, prior to discharge patient educated regarding all discharge instructions and patient teaching provided with good verbal understanding. patient reports feeling self motivated towards sobriety. Prior to discharge was administered PRN: Clonidine at 0801 and Vistaril at 0853, currently reports medications were effective, no c/o anxiety. Patients prescriptions, discharge instructions and home medications were placed in patients personal duffel bag. vital signs were stable prior to discharge. last ciwa score of: 0. Patient off the unit at 0935.
== END 2017-04-09 09:35 | disposition other institution (70) | DRG 895 ==
LOC: SRC 23:14
PROVIDERS: ADMIT Internal Medicine; ATTEND Internal Medicine
PROC: HZ2ZZZZ Detoxification Services for Substance Abuse Treatment (ICD-10-PCS; principal; 2017-04-02)
PROC: HZ41ZZZ Group Counseling for Substance Abuse Treatment, Behavioral (ICD-10-PCS; 2017-04-04)
PROC: HZ31ZZZ Individual Counseling for Substance Abuse Treatment, Behavioral (ICD-10-PCS; 2017-04-05)
DX: F10.230 Alcohol dependence with withdrawal, uncomplicated (principal); F32.1 Major depressive disorder, single episode, moderate; Y90.9 Presence of alcohol in blood, level not specified; F41.9 Anxiety disorder, unspecified; Z82.0 Family history of epilepsy and other diseases of the nervous system; Z81.1 Family history of alcohol abuse and dependence; Z80.1 Family history of malignant neoplasm of trachea, bronchus and lung; Z84.89 Family history of other specified conditions; F12.10 Cannabis abuse, uncomplicated; F17.210 Nicotine dependence, cigarettes, uncomplicated; K21.9 Gastro-esophageal reflux disease without esophagitis; Z62.810 Personal history of physical and sexual abuse in childhood; J45.909 Unspecified asthma, uncomplicated; Z79.899 Other long term (current) drug therapy; I10 Essential (primary) hypertension
CPT/HCPCS: 36415; 70030-TC; 80307; 83690; 83735; 84443; 84703; 85025; 86592; 86705; 86803; 87340; 87806; G0480; J1885; J3411; Q0163